=== PATIENT | female | born 1965 | race Hispanic/Latino ===

== ENCOUNTER 2018-11-13 09:33 | Day surgery (SDC) | payer BC ==
[2018-11-09 17:43] VITALS: BMI 30.4
[2018-11-13 11:44] LABS: BASO # 0.05 K/mm3 (0.0-2.0); BASO % 1.1 % (0.0-3.0); EOS # 0.1 (0.0-0.7); EOS % 2.4 % (1.5-5.0); GRAN # 2.38 (1.4-6.5); GRAN % 51.1 % (50.0-68.0); HEMOGLOBIN 13.9 g/dL (12.0-16.0); LYMPH # 1.8 (1.2-3.4); LYMPH % 38.9 % (22.0-35.0); MEAN CELL VOLUME 90.3 fl (80.0-105.0); MEAN CORPUSCULAR HEMOGLOBIN 29.9 pg (25.0-35.0); MEAN CORPUSCULAR HGB CONC 33.1 g/dl (31.0-37.0); MEAN PLATELET VOLUME 9.5 fl (7.0-11.0); MONO # 0.3 (0.1-0.6); MONO % 6.5 % (1.0-6.0); RBC 4.65 10^6/uL (3.5-6.1); RED CELL DISTRIBUTION WIDTH 12.5 % (11.5-14.5); WHITE BLOOD COUNT 4.7 10^3/uL (4.5-11.0)
[2018-11-13 11:48] LABS: INR 1.02; PARTIAL THROMBOPLASTIN TIME 35.9 Seconds (25.1-36.5); PROTHROMBIN TIME 11.7 SECONDS (9.4-12.5)
[2018-11-13] MEDS ORDERED: Propofol 10 mg/ml Inj (20 ML) ONE (11:50)
[2018-11-13] MEDS ORDERED: Midazolam 2 MG/2 ML VIAL ONE (11:50)
[2018-11-13] MEDS ORDERED: Sodium Chloride 0.9% 1,000 ML IV SCH (13:15)
[2018-11-13 16:34] VITALS: BP 140/78; PULSE 57; RESP 16; TEMP 97.5; O2SAT 99
== END 2018-11-13 15:12 | disposition home or self-care (01) ==
LOC: ENDO 09:33
PROVIDERS: ATTEND Internal Medicine Gastroenterology
DX: Z12.11 Encounter for screening for malignant neoplasm of colon (principal); K21.0 Gastro-esophageal reflux disease with esophagitis; K31.7 Polyp of stomach and duodenum; K29.50 Unspecified chronic gastritis without bleeding; K86.9 Disease of pancreas, unspecified; K29.80 Duodenitis without bleeding; K22.70 Barrett's esophagus without dysplasia; K62.1 Rectal polyp; K64.8 Other hemorrhoids; J30.2 Other seasonal allergic rhinitis; K29.60 Other gastritis without bleeding
CPT/HCPCS: 36415; 43239; 45380; 85025; 85610; 85730; 88305; 88312; 88342; J2001; J2250; J2704; J7030; J7040